=== PATIENT | female | born 1960 | race Native Hawaiian/Other Pacific Islander ===

== ENCOUNTER 2022-01-26 13:49 | Outpatient (CLI) | payer OTHER | END 2022-01-26 19:23 | disposition home or self-care (01) | LOC: MAMMO 13:49 | PROVIDERS: ATTEND Nurse Practitioner | DX: Z12.31 Encounter for screening mammogram for malignant neoplasm of breast (principal); M81.0 Age-related osteoporosis without current pathological fracture ==